=== PATIENT | female | born 1980 | race Asian ===

== ENCOUNTER 2016-10-10 05:41 | Emergency (ER) | payer OTHER ==
--- NOTE | 2016-10-10 05:50 | EDPHY ---
H & P Stated Complaint: N,V CHEST AND ARM PAIN WITH SOB AFTER EATING SALMON HPI/ROS: HPI CHIEF COMPLAINT: Nausea, vomiting, shortness of breath, anterior chest wall pain after eating salmon HISTORY OF PRESENT ILLNESS: this patient very pleasant 36-year-old female, denies any significant medical history does not take any daily medications, no history of DVT PE or cardiac disease, presents emergency room after eating salmon last night a from the grocery store she states approximately an hour after eating she got nauseous and vomited twice. She states she ate the same around 9:00 p.m. last night. Around 10:00 p.m. she became sick. She states all night long she has felt anxious, she felt as if she has had shortness of breath and anterior chest wall discomfort with pain when you touch her chest wall. States her muscles hurt her as well. Denies diarrhea. She does tell me also her abdomen is bloated. No diarrhea. No fever. Has had chills as well. Denies pleuritic pain. Or hemoptysis. Denies calf pain or swelling. Denies cold or heat reversal. Past Medical History: No significant medical history Past Surgical History: No recent surgical history Social History: Denies daily use of drugs alcohol tobacco products Family History: Father has heart disease ROS REVIEW OF SYSTEMS: A comprehensive 10 point review of systems is otherwise negative aside from elements mentioned in the history of present illness. Exam Constitutional anxious, triage nursing summary reviewed, vital signs reviewed, awake/alert. Eyes normal conjunctivae and sclera, EOMI, PERRLA. HENT normal inspection, atraumatic, moist mucus membranes, no epistaxis, neck supple/ no meningismus, no raccoon eyes. Respiratory clear to auscultation bilaterally, normal breath sounds, no respiratory distress, no wheezing. Cardiovascular chest wall: Tender palpation over the anterior chest wall bilaterally. rate normal, regular rhythm, no murmur, no edema, distal pulses normal. Gastrointestinal soft, non-tender, no rebound, no guarding, normal bowel sounds, no distension, no pulsatile mass. Genitourinary no CVA tenderness. Musculoskeletal no midline vertebral tenderness, full range of motion, no calf swelling, no tenderness of extremities, no meningismus, good pulses, neurovascularly intact. Skin pink, warm, & dry, no rash, skin atraumatic. No hot and cold reversal/ sensitivity. Neurologic awake, alert and oriented x 3, AAOx3, moves all 4 extremities equally, motor intact, sensory intact, CN II-XII intact, normal cerebellar, normal vision, normal speech. Psychiatric anxious Heme/Lymph/Immune no lymphadenopathy. Differential Diagnosis: Includes but is not limited to in a particular order, dehydration, electrolyte disturbance, pneumonia, urinary tract infection, food- borne illness, allergic reaction, Scombroid tox. Medical Decision Making: Plan for this patient IV establishment, full cardiac care unit nurse, EKG, troponin, D-dimer, chest x-ray, IV fluids, Ativan for anxiety Benadryl for nausea. Re-evaluation: EKG interpretation by me on record in [employer] system. Impression time of EKG 6:17 a.m., sinus rhythm rate of 85 I do not appreciate acute ischemic changes specifically no ST elevation, ST depression significant T-wave abnormality. ED x-ray chest one view: This is negative for acute cardiopulmonary disease. 0636AM: Re-evaluation this time patient is resting comfortably no acute distress. Feels better after IV Ativan and Benadryl. She tells me she is relaxed. Anxiety is resolved. It is noted this patient does have a positive D- dimer. She has a nonischemic EKG. Chest x-ray is unremarkable. Due to the positive D-dimer chest pain shortness of breath she will have a CT angiogram of her chest. I think PE is unlikely. She is feeling better after anxiety medicine and Benadryl. Blood work is reassuring. I feel a for CT scan is negative given that she has anterior musculoskeletal chest wall pain is reproducible on exam unlikely to be acute coronary syndrome arm pulmonary embolism. Her CT angiogram is negative will allow her to go home. It is possible with nausea vomiting that this is food related illness. 0719AM: I did re-evaluate this patient this time she remains stable. She denies chest pain shortness of breath. She tells me she feels better after IV Ativan IV Benadryl. She does tell me she sleepy. Her EKG is nonischemic troponin negative. D-dimer is positive CT angiogram has been performed. No results at this time. I do feel that if the CT angiogram is negative the patient go home. Nausea prescription for Zofran. This time I did sign this patient over Dr. Paul follow-up CT angiogram results. I feel that if the CT is negative she can go home. Did explain this the patient she does understand return emergency room she develops worsening pain, shortness of breath, abdominal pain, nausea or vomiting. Most likely cause of nausea, vomiting, anterior chest wall pain anxiety this possible food-borne illness. CT scan of the chest angio The results of the study are no pulmonary embolism, no dissection. Unremarkable CT angiogram of the chest. The study was read by Dr. Garland. I viewed the images myself on the PACS system. 0724am: I DID GO OVER THIS PATIENT'S CT RESULTS. SHE IS ALSO COMFORTABLE DISCHARGE PLANNING. ZOFRAN FOR HOME. SHE P.O. CHALLENGE WELL HERE. OUT VOMITING. NO ABDOMINAL PAIN. AMBULATED WELL. SAFE FOR DISCHARGE. SHE UNDERSTANDS IF SHE DEVELOPS WORSENING SYMPTOMS INCLUDES NAUSEA, VOMITING, CHEST PAIN, SHORTNESS OF BREATH, FEVER SHE HAS RETURN EMERGENCY ROOM. HER WORKUP HERE IN THE EMERGENCY ROOM IS BEEN UNEVENTFUL. ONLY ABNORMAL TEST IS POSITIVE D -DIMER. MOST LIKELY CAUSE OF CONSTELLATION OF SYMPTOMS IS FOOD-BORNE ILLNESS. Source: Patient - Personal History LMP (Females 10-55): 22-28 Days Ago Current Tetanus/Diphtheria Vaccine: Unsure Current Tetanus Diphtheria and Acellular Pertussis (TDAP): Unsure - Medical/Surgical History Hx Asthma: No Hx Chronic Respiratory Disease: No Hx Diabetes: No Hx Cardiac Disease: No Hx Renal Disease: No Hx Cirrhosis: No Hx Alcoholism: No Hx HIV/AIDS: No Hx Splenectomy or Spleen Trauma: No Other PMH: induced diabetis - Social History Smoking Status: Never smoked Constitutional: Initial Vital Signs Temperature (C) 37.0 C 10/10/16 05:44 Heart Rate 94 10/10/16 05:44 Respiratory Rate 18 10/10/16 05:44 Blood Pressure 121/72 H 10/10/16 05:44 O2 Sat (%) 97 10/10/16 05:44 O2 Delivery Mode Room Air Allergies/Adverse Reactions: No Known Allergies Allergy (Unverified 10/10/16 05:47) Home Medications: Medication Instructions Recorded Ondansetron HCl [Zofran] 4 mg PO Q4-6PRN PRN #10 tablet 10/10/16 Medical Decision Making - Data Points Laboratory Results: Laboratory Results 10/10/16 06:07 10/10/16 06:07 10/10/16 10/10/16 10/10/16 06:54 06:07 06:07 WBC RBC Hgb Hct MCV MCH MCHC RDW Plt Count MPV Neut % (Auto) Lymph % (Auto) [place] % (Auto) Eos % (Auto) Baso % (Auto) Nucleat RBC Rel Count Absolute Neuts (auto) Absolute Lymphs (auto) Absolute Monos (auto) Absolute Eos (auto) Absolute Basos (auto) Absolute Nucleated RBC Immature Gran % Immature Gran # D-Dimer 0.94 ug/mLFEU H ug/mLFEU (0.00-0.50) Sodium Potassium Chloride Carbon Dioxide Anion Gap BUN Creatinine Estimated GFR Glucose Calcium Total Bilirubin Conjugated Bilirubin Unconjugated Bilirubin AST ALT Alkaline Phosphatase Troponin I Total Protein Albumin Lipase Beta HCG, Qual NEGATIVE Urine Color YELLOW Urine Appearance CLEAR Urine pH 5.0 (5.0-7.5) Ur Specific [place] 1.024 (1.002-1.030) Urine Protein NEGATIVE (NEGATIVE) Urine Ketones NEGATIVE (NEGATIVE) Urine Blood NEGATIVE (NEGATIVE) Urine Nitrate NEGATIVE (NEGATIVE) Urine Bilirubin NEGATIVE (NEGATIVE) Urine Urobilinogen NEGATIVE EU EU (0.2-1.0) Ur Leukocyte Esterase NEGATIVE (NEGATIVE) Urine Glucose NEGATIVE (NEGATIVE) 10/10/16 10/10/16 06:07 06:07 WBC 13.54 10^3/uL H 10^3/uL (3.80-9.50) RBC 4.64 10^6/uL 10^6/uL (4.18-5.33) Hgb 13.8 g/dL g/dL (12.6-16.3) Hct 40.8 % % (38.0-47.0) MCV 87.9 fL fL (81.5-99.8) MCH 29.7 pg pg (27.9-34.1) MCHC 33.8 g/dL g/dL (32.4-36.7) RDW 12.3 % % (11.5-15.2) Plt Count 291 10^3/uL 10^3/uL (150-400) MPV 9.0 fL fL (8.7-11.7) Neut % (Auto) 82.8 % H % (39.3-74.2) Lymph % (Auto) 11.8 % L % (15.0-45.0) [place] % (Auto) 4.7 % % (4.5-13.0) Eos % (Auto) 0.2 % L % (0.6-7.6) Baso % (Auto) 0.1 % L % (0.3-1.7) Nucleat RBC Rel Count 0.0 % % (0.0-0.2) Absolute Neuts (auto) 11.21 10^3/uL H 10^3/uL (1.70-6.50) Absolute Lymphs (auto) 1.60 10^3/uL 10^3/uL (1.00-3.00) Absolute Monos (auto) 0.63 10^3/uL 10^3/uL (0.30-0.80) Absolute Eos (auto) 0.03 10^3/uL 10^3/uL (0.03-0.40) Absolute Basos (auto) 0.01 10^3/uL L 10^3/uL (0.02-0.10) Absolute Nucleated RBC 0.00 10^3/uL 10^3/uL (0-0.01) Immature Gran % 0.4 % % (0.0-1.1) Immature Gran # 0.06 10^3/uL 10^3/uL (0.00-0.10) D-Dimer Sodium 139 mEq/L mEq/L (134-144) Potassium 3.7 mEq/L mEq/L (3.5-5.2) Chloride 104 mEq/L mEq/L (97-110) Carbon Dioxide 24 mEq/l mEq/l (22-31) Anion Gap 11 mEq/L mEq/L (8-16) BUN 13 mg/dL mg/dL (7-23) Creatinine 0.5 mg/dL L mg/dL (0.6-1.0) Estimated GFR > 60 Glucose 111 mg/dL H mg/dL (70-100) Calcium 9.5 mg/dL mg/dL (8.5-10.4) Total Bilirubin 0.6 mg/dL mg/dL (0.1-1.4) Conjugated Bilirubin 0.3 mg/dL mg/dL (0.0-0.5) Unconjugated Bilirubin 0.3 mg/dL mg/dL (0.0-1.1) AST 36 IU/L IU/L (14-46) ALT 50 IU/L IU/L (9-52) Alkaline Phosphatase 54 IU/L IU/L (38-126) Troponin I < 0.012 ng/mL ng/mL (0-0.034) Total Protein 7.4 g/dL g/dL (6.3-8.2) Albumin 3.8 g/dL g/dL (3.5-5.0) Lipase 124.0 IU/L IU/L (23-300) Beta HCG, Qual Urine Color Urine Appearance Urine pH Ur Specific [place] Urine Protein Urine Ketones Urine Blood Urine Nitrate Urine Bilirubin Urine Urobilinogen Ur Leukocyte Esterase Urine Glucose Medications Given: Discontinued Medications Diphenhydramine HCl (Benadryl Injection) 12.5 mg IVP EDNOW ONE Stop: 10/10/16 05:56 Last Admin: 10/10/16 06:10 Dose: 12.5 mg Sodium Chloride (Ns) 1,000 mls @ 0 mls/hr IV ONCE ONE; Wide Open PRN Reason: Protocol Stop: 10/10/16 05:55 Last Admin: 10/10/16 06:10 Dose: 1,000 mls Lorazepam (Ativan Injection) 0.5 mg IVP EDNOW ONE Stop: 10/10/16 05:56 Last Admin: 10/10/16 06:11 Dose: 0.5 mg Departure - Departure Disposition: Home, Routine, Self-Care Clinical Impression: Anxiety Vomiting Qualifiers: Vomiting type: unspecified Vomiting Intractability: intractable Nausea presence : with nausea Qualified Code(s): R11.2 - Nausea with vomiting, unspecified Condition: Good Instructions: Acute Nausea and Vomiting (ED), Anxiety (ED) Additional Instructions: 1. [place] diet for next 24-48 hours. 2. Return emergency room if develops worsening symptoms includes severe vomiting , abdominal pain, fever questions or concerns. Referrals: Magdalena Pantoja MD [Primary Care Provider] - As per Instructions Prescriptions: Ondansetron HCl [Zofran] 4 mg PO Q4-6PRN PRN #10 tablet PRN Reason: Nausea/Vomiting, Use 1st
[2016-10-10] MEDS ORDERED: NS 1,000 ML IV ONE (05:54)
[2016-10-10] MEDS ORDERED: LORazepam 2 MG/ML INJ IVP ONE (05:55)
[2016-10-10 06:14] VITALS: PULSE 84; RESP 16
[2016-10-10 06:18] LABS: % IMMATURE GRANULYOCYTES 0.4 % (0.0-1.1); ABSOLUTE IMMATURE GRANULOCYTES 0.06 10^3/uL (0.00-0.10); ADD DIFF? NO; ADD MORPH? NO; ADD SCAN? NO; ATYPICAL LYMPHOCYTE FLAG 0 (0-99); FRAGMENT RBC FLAG 0 (0-99); HEMATOCRIT 40.8 % (38.0-47.0); HEMOGLOBIN 13.8 g/dL (12.6-16.3); LEFT SHIFT FLG 0 (0-99); LIPEMIA HEMOLYSIS FLAG 90 (0-99); MEAN CELL HEMOGLOBIN 29.7 pg (27.9-34.1); MEAN CELL HEMOGLOBIN CONCENTR. 33.8 g/dL (32.4-36.7); MEAN CELL VOLUME 87.9 fL (81.5-99.8); PLATELET CLUMPS FLAG 20 (0-99); PLATELET COUNT 291 10^3/uL (150-400); RED BLOOD CELL COUNT 4.64 10^6/uL (4.18-5.33); RED CELL DISTRIBUTION WIDTH 12.3 % (11.5-15.2)
--- NOTE | 2016-10-10 06:20 | CPEKG ---
Heart Rate: 85 RR Interval: 706 P-R Interval: 188 QRSD Interval: 74 QT Interval: 400 QTC Interval: 476 P [place]: 59 QRS [place]: 62 T Wave [place]: 30 EKG Severity - BORDERLINE ECG - EKG Impression: SINUS RHYTHM EKG Impression: BORDERLINE PROLONGED QT INTERVAL Electronically Signed By: Goran Leach 11-Oct-2016 09:03:08
[2016-10-10 06:27] LABS: ALANINE AMINOTRANSFERASE 50 IU/L (9-52); ALBUMIN 3.8 g/dL (3.5-5.0); ALKALINE PHOSPHATASE 54 IU/L (38-126); ANION GAP 11 mEq/L (8-16); ASPARTATE AMINOTRANSFERASE 36 IU/L (14-46); BILIRUBIN,TOTAL 0.6 mg/dL (0.1-1.4); BILIRUBIN-CONJUGATED 0.3 mg/dL (0.0-0.5); BILIRUBIN-UNCONJUGATED 0.3 mg/dL (0.0-1.1); CALCIUM 9.5 mg/dL (8.5-10.4); CARBON DIOXIDE 24 mEq/l (22-31); CHLORIDE 104 mEq/L (97-110); CREATININE 0.5 mg/dL (0.6-1.0); GLOMERULAR FILTRATION RATE > 60; GLUCOSE 111 mg/dL (70-100); POTASSIUM 3.7 mEq/L (3.5-5.2); SODIUM 139 mEq/L (134-144); TOTAL PROTEIN 7.4 g/dL (6.3-8.2)
[2016-10-10 06:38] LABS: TROPONIN I < 0.012 ng/mL (0-0.034)
[2016-10-10] MEDS ORDERED: IOPAMIDOL (ISOVUE 370) 100 ML BTL IV ONE (06:43)
[2016-10-10 07:17] LABS: COLOR YELLOW; LEUKOCYTE ESTERASE,URINE NEGATIVE (NEGATIVE); NITRITE,URINE NEGATIVE (NEGATIVE)
[2016-10-10 07:26] VITALS: BP 125/69; TEMP 98.4; O2SAT 96
== END 2016-10-10 07:38 | disposition home or self-care (01) ==
DX: R11.2 Nausea with vomiting, unspecified (principal); F41.9 Anxiety disorder, unspecified
CPT/HCPCS: 96374; J1200; J2060; Q9967

== ENCOUNTER → 2016-10-20 | Outpatient (CLI) | payer OTHER | LOC: FIMAGING 17:19 | PROVIDERS: ATTEND Family Medicine | DX: M25.562 Pain in left knee (principal) ==

== ENCOUNTER → 2017-05-31 | Outpatient (CLI) | payer OTHER | LOC: FIMAGING 07:51 | PROVIDERS: ATTEND Family Medicine | DX: D18.09 Hemangioma of other sites (principal); R94.5 Abnormal results of liver function studies ==

== ENCOUNTER 2017-06-27 18:41 | Emergency (ER) | payer OTHER ==
[2017-06-27 18:51] VITALS: PULSE 69; TEMP 98.1; O2SAT 98
--- NOTE | 2017-06-27 19:17 | EDPHY ---
H & P Time Seen by Provider: 06/27/17 18:54 HPI/ROS: CHIEF COMPLAINT: Left-sided neck pain HISTORY OF PRESENT ILLNESS: Patient awakened yesterday morning with neck pain. Feels very stiff and hurts more if she moves her head. No known injury. Not associated with headache or vertigo or recent trauma or injury. No fever or chills. No weakness or numbness in arms. Symptoms severe and not really helped a lot by ibuprofen. REVIEW OF SYSTEMS: Eye: no change in vision ENT: no sore throat or difficulty swallowing, no change in voice. Cardiac: no chest pain or syncope Pulmonary: no cough or SOB Abdomen: no vomiting, diarrhea, abdominal pain, does have some associated nausea , when the pain spikes Musculoskeletal: HPI Skin: no rash Neuro: no headache Constitutional: no fever : no urinary symptoms No new medications. A comprehensive 10 point review of systems is otherwise negative aside from elements mentioned in the history of present illness. PAST MEDICAL HISTORY: Diabetes on metformin Social history: No drugs, works as an sales representative consultant General Appearance: Alert and conversant, cooperative. Eyes: No scleral icterus. ENT, Mouth: Normal mucous membranes. Respiratory: Normal respiratory effort, breath sounds equal, lungs are clear to auscultation. Cardiovascular: Regular rate and rhythm. Gastrointestinal: Abdomen is soft and non tender. Neurological: Alert, face symmetric, normal motor and sensory in extremities. Normal strength in deltoids, biceps, triceps, wrist extensors, and intrinsics. Skin: Warm and dry, no rashes. No zoster. Musculoskeletal: Patient has significant left-sided trapezius muscle and paraspinal lower cervical muscle tenderness. Reproduces her symptoms by turning her head to the right and pushing her ear toward her right shoulder. Psychiatric: Not agitated. Of moderately anxious. Emergency Department course/MDM: Patient requesting imaging of her neck. Plain x-rays ordered. I think it is unlikely she has a vertebral or carotid dissection or deep space neck infection or cervical spine fracture. Much more likely to be a muscle spasm or torticollis. Does not clinically have meningitis, acute coronary syndrome, dystonic reaction. Trigger point injection discussed and consented. 1% xylocaine without epinephrine 3 mL injected into the trapezius area of greatest tenderness, under standard sterile conditions. X-rays discussed, nonsteroidals and small amount of prescription narcotic for sleep. Warned to symptoms may last the next week. Smoking Status: Never smoked Constitutional: Initial Vital Signs Temperature (C) 36.7 C 06/27/17 18:43 Heart Rate 69 06/27/17 18:43 Respiratory Rate 18 06/27/17 18:43 Blood Pressure 119/76 06/27/17 18:43 O2 Sat (%) 98 06/27/17 18:43 O2 Delivery Mode Room Air Allergies/Adverse Reactions: No Known Allergies Allergy (Verified 06/27/17 18:43) Home Medications: Medication Instructions Recorded Hydrocodone/APAP 5/325 [[place] 1 tab PO Q4-6PRN PRN #11 tab 06/27/17 5/325] metFORMIN HCL [Glucophage 500 mg 500 mg PO 06/27/17 (*)] Medical Decision Making - Diagnostics Imaging Results: Imaging Impressions Cervical Spine X-Ray 06/27/17 19:06 Impression: Negative for fracture. Straightening of the cervical curvature may reflect muscle spasm. Imaging: I viewed and interpreted images myself - Data Points Medications Given: Discontinued Medications Ibuprofen (Motrin) 600 mg PO EDNOW ONE Stop: 06/27/17 19:19 Last Admin: 06/27/17 19:26 Dose: 600 mg Departure - Departure Disposition: Home, Routine, Self-Care Clinical Impression: Torticollis, acute Condition: Good Instructions: Spasmodic Torticollis (ED) Additional Instructions: Ibuprofen 600 mg orally every 6-8 hours as needed for pain. Heating pad to the area as needed. Referrals: Magdalena Pantoja MD [Primary Care Provider] - As per Instructions Prescriptions: Hydrocodone/APAP 5/325 [[place] 5/325] 1 tab PO Q4-6PRN PRN #11 tab PRN Reason: For Pain
[2017-06-27] MEDS ORDERED: IBUPROFEN 600 MG TAB PO ONE (19:18)
[2017-06-27 20:01] VITALS: BP 112/70; RESP 16
== END 2017-06-27 20:02 | disposition home or self-care (01) ==
DX: M43.6 Torticollis (principal); E11.9 Type 2 diabetes mellitus without complications; Z79.84 Long term (current) use of oral hypoglycemic drugs